=== PATIENT | male | born 1980 | race Caucasian/White ===

== ENCOUNTER 2017-07-30 00:11 | Emergency (ER) | payer MEDICAID ==
[~2017-07-30] VITALS: Ht 167.6 cm; Wt 68.0 kg
[2017-07-30 00:11] VITALS: BP_SYST 144
--- NOTE | 2017-07-30 00:11 | NUR ---
Patient to ER bed 2 to gown for evaluation. Side rails up. Report given to JESUS SMITH.
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
--- NOTE | 2017-07-30 00:15 | NUR ---
ER at bedside examining patient.
[2017-07-30 00:27] VITALS: BP_SYST 144
--- NOTE | 2017-07-30 00:27 | NUR ---
Patient given written and verbal discharge instructions and verbalizes understanding. ER MD DUFFY discussed with patient the results and treatment provided. Patient in stable condition. ID arm band removed. NO Rx given. Patient educated on pain management and to follow up with PMD. Pain Scale 0/10. Opportunity for questions provided and answered.
== END 2017-07-30 00:27 ==
LOC: SED 00:11
DX: S00.212A Abrasion of left eyelid and periocular area, initial encounter (principal); S10.91XA Abrasion of unspecified part of neck, initial encounter; W50.4XXA Accidental scratch by another person, initial encounter; Y93.89 Activity, other specified; Y92.89 Other specified places as the place of occurrence of the external cause; Y99.8 Other external cause status
CPT/HCPCS: 99283